=== PATIENT | male | born 1955 | race Caucasian/White ===

== ENCOUNTER 2023-10-29 00:54 | Emergency (ER) | payer OTHER ==
[~2023-10-29] VITALS: Ht 182.8 cm; Wt 68.9 kg
[~2023-10-29 00:54] MED LIST: KEFLEX500 MG PO; NKHM PO
[2023-10-29] MEDS ORDERED: Albuterol Sulf/Ipratropium 3 ML VIAL NEB ONE (01:35)
[2023-10-29] MEDS ORDERED: methylPREDNISolone sod succ 125 MG VIAL IV ONE (01:35)
[2023-10-29 01:49] LABS: BASO # 0.1 10*3/uL (0.0-0.1); EOS # 0.6 10*3/uL (0.0-0.4); EOS % 8.9 % (1.0-4.0); HEMATOCRIT 42.3 % (42.0-52.0); LYMPH # 1.8 10*3/uL (1.3-4.4); LYMPH % 25.4 % (27.0-41.0); MEAN CELL VOLUME 93.6 fl (80.0-94.0); MEAN CORPUSCULAR HGB 31.4 pg (27.0-31.0); MEAN CORPUSCULAR HGB CONC 33.6 g/dl (33.0-37.0); MEAN PLATELET VOLUME 9.3 fl (9.6-12.3); MONO # 0.6 10*3/uL (0.1-1.0); MONO % 8.3 % (3.0-9.0); NEUT # 3.9 10*3/uL (2.3-7.9); NEUT % 55.8 % (47.0-73.0); PLATELET COUNT AUTOMATED 218 10*3/uL (130-400); RED BLOOD COUNT 4.52 10*6/uL (4.50-5.90); RED CELL DISTRI WIDTH 11.9 % (0-14.5); WHITE BLOOD COUNT 6.9 10*3/uL (4.8-10.8)
[2023-10-29 02:13] LABS: ALKALINE PHOSPHATASE 56 U/L (46-116); BUN 10 mg/dl (9-23); CHLORIDE 108 mmol/L (98-107); POTASSIUM 4.6 mmol/L (3.4-5.1); SGPT/ALT 13 U/L (5-49); TOTAL PROTEIN 6.4 gm/dL (6.0-8.0)
[2023-10-29] MEDS ORDERED: PREDNISONE20 M1 PO (02:59)
[2023-10-29] MEDS ORDERED: AMOX-CLAV 875-1 EACH PO (02:59)
== END 2023-10-29 04:29 | disposition home or self-care (01) ==
LOC: ED 00:54
PROVIDERS: Internal Medicine
DX: J44.1 Chronic obstructive pulmonary disease with (acute) exacerbation (principal); F17.200 Nicotine dependence, unspecified, uncomplicated; Z88.0 Allergy status to penicillin

== ENCOUNTER → 2025-03-26 | Outpatient (CLI) | payer MEDICARE ==
[~2025-03-26] MED LIST changes: +AMOX-CLAV 875-1 EACH PO; +PREDNISONE20 M1 PO
== END | disposition home or self-care (01) ==
LOC: RAD 12:27
PROVIDERS: ATTEND Internal Medicine
DX: J18.9 Pneumonia, unspecified organism (principal); M47.814 Spondylosis without myelopathy or radiculopathy, thoracic region; I25.84 Coronary atherosclerosis due to calcified coronary lesion